=== PATIENT | female | born 1970 | race Two or more races ===

== ENCOUNTER → 2024-12-02 | Outpatient (CLI) | payer BC, SELFPAY ==
--- NOTE | 2024-12-02 16:30 | XR_ITS ---
Examination: Abdomen sonogram, complete Date and time of exam: December 02, 2024 at 1638 hrs. Indications: Jaundice onset noticed beginning 3 weeks ago. Technique: Multiple real-time grayscale transabdominal sonographic images of the abdomen have been obtained. Findings: Gallbladder sludge Gallbladder wall is thickened 0.71 cm Common bile duct enlarged 0.7 cm Pancreatic head 2.5 cm Aorta not enlarged Liver 19.8 cm irregular contour, mild ascites Normal hepatopedal portal venous flow Patent IVC Right kidney 9.9 cm cortex 1.3 cm Left kidney 12.2 cm renal cortex 1.9 cm Spleen 13.4 cm Impression: Gallbladder sludge, gallbladder wall is thickened 0.71 cm Enlarged common bile duct 0.7 cm, consider MRCP follow-up to exclude cholecystitis and stones in the common bile duct Cirrhosis Mild splenomegaly
[2024-12-02 17:32] LABS: Collection Type, Urine Clean Catch
[2024-12-02 17:48] LABS: Basophils # (Auto) 0.1 Thou/mm3 (0.0-0.2); Basophils % (Auto) 0 % (0-2.5); Eosinophils # (Auto) 0.1 Thou/mm3 (0.0-0.5); Eosinophils % (Auto) 0 % (0-10); Hematocrit 33.8 % (36.0-46.0); Hemoglobin 11.7 g/dL (12.0-16.0); Immature Granulocytes % (Auto) 1 % (0-0); Lymphocytes # (Auto) 1.7 Thou/mm3 (1.0-4.8); Lymphocytes % (Auto) 6 % (10-50); Mean Corpuscular HGB Conc 34.6 g/dl (31.0-37.0); Mean Corpuscular Hemoglobin 36.3 pg (25.0-35.0); Mean Corpuscular Volume 105 fL (80-100); Monocytes # (Auto) 1.5 Thou/mm3 (0.0-0.8); Monocytes % (Auto) 5 % (0-12); Neutrophils # (Auto) 25.7 Thou/mm3 (1.8-7.7); Neutrophils % (Auto) 88 % (37-80); Nucleated Red Blood Cell % 0 /100 WBC (0); Platelet Count 200 Thou/mm3 (140-440); RDW Standard Deviation 56.6 fL (36.4-46.3); Red Blood Count 3.22 Miln/mm3 (4.00-5.20); White Blood Count 29.4 Thou/mm3 (3.6-11.0)
[2024-12-02 17:57] LABS: Bacteria,Urine 4+; Bilirubin,Urine 3+ (Negative); Blood,Urine Negative (Negative); Color,Urine Drk-Yellow (Lt Yel-Yel); Culture Indicated,Urine Contaminated; Glucose, Urine Negative (Negative); Ketones,Urine Negative (Negative); Leukocyte Esterase,Urine Positive (Negative); Nitrite,Urine Negative (Negative); Protein,Urine 1+ (Neg - Trace); RBC,Urine 2 /hpf (0-3); Specific Gravity,Urine 1.019 (1.001-1.035); Squamous Epithelial Cell,Urine 12 /hpf (0-5); WBC,Urine 176 /hpf (0-5)
[2024-12-02 17:58] LABS: Clarity,Urine Turbid (Clear/Hazy)
[2024-12-02 18:00] LABS: Ammonia 35 uMol/L (11-32)
[2024-12-02 18:06] LABS: Ferritin 840 ng/mL (7.3-270.7); Iron 74 mcg/dL (50-170); Vitamin B12 > 2000 pg/mL (211-911); Vitamin D 25 Hydroxy Total 30.4 ng/mL (7.3-40.2)
[2024-12-02 20:43] LABS: Alanine Aminotransferase 19 U/L (10-49); Albumin, Serum 2.1 gm/dL (3.5-5.0); Albumin/Globulin Ratio 0.7 (1.2-2.2); Alkaline Phosphatase 294 U/L (46-116); Anion Gap 9 (7-16); Aspartate Amino Transferase 80 U/L (0-34); BUN/Creatinine Ratio 17 Ratio (12-20); Bilirubin,Total 9.6 mg/dL (0.3-1.2); Blood Urea Nitrogen 24 mg/dL (9-23); Calcium 7.5 mg/dL (8.3-10.6); Carbon Dioxide 23.3 mMol/L (20.0-31.0); Chloride 98 mMol/L (98-107); Cholesterol 179 mg/dL (132-200); Creatinine (Component) 1.4 mg/dL (0.6-1.3); Glucose 140 mg/dL (74-106); HDL Cholesterol < 5 mg/dL (40-60); LDL Cholesterol,Calculated 131 mg/dL (0-130); Osmolality,Calculated 266 (275-295); Potassium 3.6 mMol/L (3.4-5.1); Sodium 130 mMol/L (136-145); Thyroid Stimulating Hormone 7.63 uIU/mL (0.55-4.78); Total Protein 5.1 gm/dL (5.7-8.2); Triglycerides 215 mg/dL (30-150); eGFR 44 See Note
== END | disposition home or self-care (01) ==
LOC: CDIM 16:57 → COPL 17:04
PROVIDERS: PCP Physician Assistant; Referring Provider Physician Assistant; Visit Provider Physician Assistant
DX: K74.60 Unspecified cirrhosis of liver (principal); K83.8 Other specified diseases of biliary tract; K82.8 Other specified diseases of gallbladder; R16.1 Splenomegaly, not elsewhere classified; F10.10 Alcohol abuse, uncomplicated; R53.83 Other fatigue; R63.0 Anorexia; R53.1 Weakness; E78.5 Hyperlipidemia, unspecified
CPT/HCPCS: 36415; 76700; 80053; 80061; 81001; 82140; 82306; 82607; 82728; 83540; 84443; 85025

== ENCOUNTER 2024-12-03 17:26 | Emergency (ER) | payer BC, SELFPAY ==
--- NOTE | 2024-12-03 | XR_ITS ---
MRI abdomen, without contrast. MRCP Date and time of exam: November 23, 2024 1127 hrs. Indications: Mid abdominal pain one month Technique: Multiple axial and coronal images of the abdomen have been obtained with the Siemens 1.5T MRI scanner. Images obtained included T1 weighted transverse images, T2-weighted transverse images, T2-weighted transverse images fat-suppressed, T2 weighted haste fat suppressed transverse images, T1 weighted images, in and out of phase images, T2-weighted coronal images, breath hold, T2 weighted haze coronal images as well as T2 weighted coronal thick slab images, MRCP. Findings: Cirrhosis Moderate ascites Gallbladder wall is thickened, which may relate to the patient's ascites Gallbladder sludge Sludge versus 4 mm stone in the common bile duct coronal image 15 Spleen 12 cm No bowel obstruction No hydronephrosis Aorta normal size Impression: Cirrhosis Gallbladder wall is thickened which may relate to the patient's ascites, recommend HIDA scan follow-up Common bile duct 10 mm, sludge versus 4 mm stone in the common bile duct, recommend ERCP follow-up
[2024-12-03 17:45] VITALS: BP 86/55; BP 89/61; PULSE 114; RESP 19; TEMP 36.6; O2SAT 95; BMI 26.4
--- NOTE | 2024-12-03 17:45 | XR_ITS ---
Examination: CT abdomen and pelvis without contrast. Coronal 3-D reconstructions. Sagittal 2-D reconstructions. Date and time of exam:December 03, 2024 1819 hrs. Indications: Jaundice nausea vomiting leukocytosis beginning 2 weeks ago CTDI: vol (mGy): 8.87 DLP: (mGycm): 526 Technique: Axial images of the abdomen have been obtained, 3 mm slice thickness Intravenous contrast material has not been administered. Low dose protocols were performed. One or more of the following dose reduction techniques were used; automated exposure control, adjustment of the mA and/or KV according to patient size, use of iterative reconstruction technique. Findings: Atelectasis versus mild pneumonia right base Small left minimal right pleural fluid Cirrhosis, liver nodular in contour with mild ascites Gallbladder wall appears thickened No pancreatic mass No hydronephrosis No bowel obstruction Enlarged appendix is not depicted Atrophic uterus with multiple uterine fundal masses 7 mm calcified Mild thickening urinary bladder wall Impression: Cirrhosis Mild ascites Recommend gallbladder sonography to exclude cholecystitis Recommend pelvic sonography to assess the enlarged uterus with multiple uterine fundal masses
--- NOTE | 2024-12-03 17:45 | XR_ITS ---
Examination: Abdomen sonogram, Limited Date and time of exam: November 2024 1842 hrs. Indications: Weakness abdominal pain and jaundice bloating beginning 3 weeks ago Technique: Real-time alexis scale transabdominal sonographic images of the upper abdomen obtained. Findings: Gallbladder sludge Gallbladder wall 0.6 cm Common bile duct 0.7 cm Pancreatic head 2.6. Liver 19.3 cm lobular contour, abnormal hepatofugal flow Patent IVC Mild ascites Impression: Cirrhosis, mild ascites Abnormal thickening of the gallbladder wall 0.6 cm and enlarged common bile duct 7 mm, clinical correlation advised Consider HIDA scan or MRCP follow-up
--- NOTE | 2024-12-03 17:46 | EDRME_ITS ---
Rapid Medical Screening Exam [facility] Arrival date/time: 12/03/24 17:26 54-year-old female with no known medical history presents to the emergency room with a chief complaint of abdominal tenderness, hypotension, and jaundice. Patient was sent over by her primary care provider for further workup. Patient states she has a history of heavy alcohol consumption. I have greeted and performed a focused initial assessment of this patient. A comprehensive ED assessment and evaluation of the patient, analysis of all test results, and completion of the medical decision making process will be conducted by additional ED providers. Chief Complaint: Abdominal Pain Vital signs: Vital Signs Temperature 97.8 F 12/03/24 17:45 Pulse Rate 114 H 12/03/24 17:45 Respiratory Rate 19 12/03/24 17:45 Blood Pressure 86/55 L 12/03/24 17:45 Pulse Oximetry (%) 95 12/03/24 17:45 Oxygen Delivery Method Room Air 12/03/24 17:45 Vital signs reviewed by provider: Yes
[2024-12-03 18:05] LABS: Basophils # (Auto) 0.1 Thou/mm3 (0.0-0.2); Basophils % (Auto) 0 % (0-2.5); Eosinophils # (Auto) 0.1 Thou/mm3 (0.0-0.5); Eosinophils % (Auto) 0 % (0-10); Hematocrit 34.4 % (36.0-46.0); Hemoglobin 11.7 g/dL (12.0-16.0); Immature Granulocytes % (Auto) 1 % (0-0); Lymphocytes # (Auto) 1.4 Thou/mm3 (1.0-4.8); Lymphocytes % (Auto) 5 % (10-50); Mean Corpuscular Hemoglobin 36.2 pg (25.0-35.0); Mean Corpuscular Volume 107 fL (80-100); Monocytes # (Auto) 1.2 Thou/mm3 (0.0-0.8); Monocytes % (Auto) 5 % (0-12); Neutrophils # (Auto) 22.7 Thou/mm3 (1.8-7.7); Neutrophils % (Auto) 88 % (37-80); Nucleated Red Blood Cell % 0 /100 WBC (0); Platelet Count 189 Thou/mm3 (140-440); RDW Standard Deviation 57.5 fL (36.4-46.3); Red Blood Count 3.23 Miln/mm3 (4.00-5.20); White Blood Count 25.7 Thou/mm3 (3.6-11.0)
--- NOTE | 2024-12-03 18:14 | PD.EDADULT ---
ED General RME/HPI General Chief complaint: Abdominal Pain Stated complaint: ABD PAIN, JAUNDICE, ELEVATED WBC, SENT BY PCP Arrival date/time: 12/03/24 17:26 RME / HPI RME / HPI narrative: Patient is 54 years old female with past medical history of hypertension and alcohol use disorder presented to the ED due to worsening weakness and jaundice. She reports her condition was worsening over the last 3 weeks when she started becoming yellow and was gradually worsening. She also developed significant generalized weakness. She reports she stopped drinking alcohol 1 month ago, prior to that she was drinking a lot of hard liquor daily for many years. She denies using drugs or smoking tobacco. She denies any fever, chills, chest pain, abdominal pain, nausea or vomiting. She reports over the last several days her stool became pale and urine became dark. Related Data Allergies Allergy/AdvReac Type Severity Reaction Status Date / Time No Known Allergies Allergy Verified 12/03/24 17:29 Review of Systems Review of Systems Systems Reviewed: All systems reviewed, normal except as documented ED Exam Narrative Physical exam: Gen: Well-developed and well-nourished. HEENT: NCAT, PERRLA, EOMI, MMM, icteric conjunctivae. CVS: normal S1 and S2. RRR. No M/R/G. Resp: CTA B/L. No rhonchi, rales, crackles or wheezing. Abd: soft, non-tender, moderately distended. BS+ in all 4 quadrants. MSK: Good ROM in BUE & BLE. No rash. 2+ edema BLE. Neuro: CN II-XII grossly intact. Strength 5/5 in BUE & BLE. Alert and oriented x3. Psych: appropriate mood and affect. Course Course Course Narrative: 1899: US and CT scan were suspicious for gallstone cholecystitis, recommended MRCP or HIDA scan for definitive Dx. Patient is clinically asymptomatic other then abdominal distension which is likely due to cirrhosis. Abdomen is non-tender, Dunn is negative. 1929: sepsis alert. given Zosyn and IVF. 2139: patient will need to have MRCP or HIDA scan prior to admission to rule out gallstone cholecystitis. Patient will stay in ED until morning to perform MRCP or HIDA. 0600: signed off to day shift. Quality Measures Current suspected stage: sepsis Possible source: genitourinary Blood cultures ordered: yes Antibiotic ordered: Yes Pertinent labs: 12/03/24 12/03/24 17:58 21:23 Lactic Acid 3.0 H mMol/L 2.0 mMol/L (0.4-2.0) (0.4-2.0) Procalcitonin 1.33 H ng/ml (0.0-0.49) sepsis Orders Category Date Time Status Fluid restriction QDAY Care 12/03/24 19:40 Active Insert IV STAT Care 12/03/24 17:45 Active MRI Screening NOW Care 12/03/24 19:02 Active Strict Intake and Output Routine Care 12/03/24 19:[address] abdomen pelvis wo con Stat Exams 12/03/24 17:45 Completed MR MRCP Stat Exams 12/03/24 Ordered NM HIDA w pharm Stat Exams 12/03/24 19:42 Ordered US gall bladder Stat Exams 12/03/24 17:45 Completed Ammonia Stat Lab 12/03/24 18:21 Completed Amylase Stat Lab 12/03/24 17:58 Completed Bilirubin,Direct Stat Lab 12/03/24 17:58 Completed Blood Culture (Lab) Stat Lab 12/03/24 18:21 Received CBC Stat Lab 12/03/24 17:58 Completed CMP [Comprehensive Metabolic Panel] Stat Lab 12/03/24 17:58 Completed HCG Qualitative,Urine Stat Lab 12/03/24 19:20 Completed Lactate (Lactic Acid) Stat Lab 12/03/24 17:58 Completed Lactic Acid, 3 HR Stat Lab 12/03/24 21:23 Completed Lipase Stat Lab 12/03/24 17:58 Completed Procalcitonin Stat Lab 12/03/24 17:58 Completed UA [Urinalysis] Stat Lab 12/03/24 19:20 Completed Urine Culture Stat Lab 12/03/24 17:45 Received Albumin Human 25% Ivpb [Albuminar-25 Ivpb] Med 12/03/24 21:06 Discontinued 12.5 gm in 50 ml IV X1 Piper/Tazo 3.375 gm Premix [Zosyn] Med 12/03/24 19:22 Discontinued 3.375 gm in 50 ml IV X1 Sodium Chloride 0.9% 1000 ml [Ns] 1,000 ml Med 12/03/24 17:46 Discontinued IV 999 mls/hr Vital Signs Vital signs: Vital Signs Temperature 97.8 F 12/03/24 17:45 Pulse Rate 114 H 12/03/24 17:45 Respiratory Rate 19 12/03/24 17:45 Blood Pressure 86/55 L 12/03/24 17:45 Pulse Oximetry (%) 95 12/03/24 17:45 Oxygen Delivery Method Room Air 12/03/24 17:45 MDM Patient data External records reviewed:: [facility] previous records Clinical information provided by:: patient and family Social determinants that could affect healthcare access:: alcohol use Patient has the following chronic illnesses:: hypertension and alcohol use disorder How is presenting disease/condition affected by chronic disease/condition?: exacerbated by Evaluation data The following diagnostics were reviewed and interpreted by me:: lab results, radiology exam(s) and EKG tracing(s) Lab and/or radiology exams considered but not ordered:: na Interpretation Summary: Sepsis 2/2 UTI, suspicion for gallstone cholecystitis. Medications Medications considered but not ordered:: na Medication administrations:: Medication Administration History Discontinued Medications Sodium Chloride (Ns) 1,000 mls @ 999 mls/hr IV .Q1H1M ONE Stop: 12/03/24 18:46 Last Infusion: 12/03/24 20:13 Dose: Infused Documented By: Admin: 12/03/24 18:18 Dose: 999 mls/hr Documented By: [facility] Piperacillin/Tazobactam/Dextrose (Zosyn) 3.375 gm in 50 mls @ 100 mls/hr IV X1 ONE Stop: 12/03/24 19:51 Last Infusion: 12/03/24 20:12 Dose: Infused Documented By: Admin: 12/03/24 19:32 Dose: 100 mls/hr Documented By: EF Albumin Human (Albuminar-25 Ivpb) 12.5 gm in 50 mls @ 50 mls/hr IV X1 ONE Stop: 12/03/24 22:05 Last Infusion: 12/03/24 22:43 Dose: Infused Documented By: Admin: 12/03/24 21:43 Dose: 50 mls/hr Documented By: EF as above Consultations Consultation(s) initiated? (list below): No Diagnosis Differential Diagnosis ED Complaint MDM: sepsis, SHANTEL, cholecystitis, Most likely diagnosis given after review of the tests above:: sepsis 2/2 UTI Admission Indicated Admission indicated?: indicated Explain why admission is indicated or not indicated:: Admission is indicated for sepsis 2/2 UTI, however gallstone cholecystitis needs to be ruled out due to lack of ERCP at the hospital. Patient will undergo MRCP or HIDA scan in the morning to determine further management. Admission Request Was there a request for admission?: No Disposition Plan Disposition Plan: other (specify) (passed to day shift.) Medical Decision Making Differential Diagnosis Differential Diagnosis: sepsis, RETIREMENT, cholecystitis, Lab Data 12/03/24 17:58 12/03/24 17:58 Labs: Lab Results 12/03/24 12/03/24 12/03/24 Range/Units 17:58 18:21 19:20 WBC 25.7 H (3.6-11.0) Thou/mm3 RBC 3.23 L (4.00-5.20) Miln/mm3 Hgb 11.7 L (12.0-16.0) g/dL Hct 34.4 L (36.0-46.0) % MCV 107 H (80-100) fL MCH 36.2 H (25.0-35.0) pg MCHC 34.0 (31.0-37.0) g/dl RDW Std Deviation 57.5 H (36.4-46.3) fL Plt Count 189 (140-440) Thou/mm3 Neut % (Auto) 88 H (37-80) % Lymph % (Auto) 5 L (10-50) % [place] % (Auto) 5 (0-12) % Eos % (Auto) 0 (0-10) % Baso % (Auto) 0 (0-2.5) % Neut # (Auto) 22.7 H (1.8-7.7) Thou/mm3 Lymph # (Auto) 1.4 (1.0-4.8) Thou/mm3 [place] # (Auto) 1.2 H (0.0-0.8) Thou/mm3 Eos # (Auto) 0.1 (0.0-0.5) Thou/mm3 Baso # (Auto) 0.1 (0.0-0.2) Thou/mm3 Immature Gran # (Auto) 0.30 H (0.00-0.00) Thou/mm3 Absolute Nucleated RBC 0.00 (0.00-0.00) Thou/mm3 Immature Gran % 1 H (0-0) % Nucleated RBC % 0 (0) /100 WBC Sodium 128 L (136-145) mMol/L Potassium 3.9 (3.4-5.1) mMol/L Chloride 98 (98-107) mMol/L Carbon Dioxide 22.4 (20.0-31.0) mMol/L Anion Gap 8 (7-16) BUN 24 H (9-23) mg/dL Creatinine 1.1 (0.6-1.3) mg/dL Estim Creat Clear Calc 57.5 L (>60) mL/min eGFR 59 L (60 - ) See Note BUN/Creatinine Ratio 22 H (12-20) Ratio Glucose 185 H (74-106) mg/dL Calculated Osmolality 266 L (275-295) Lactic Acid 3.0 H (0.4-2.0) mMol/L Calcium 7.8 L (8.3-10.6) mg/dL Corrected Calcium 9.1 (8.5-10.1) mg/dL Total Bilirubin 9.4 H (0.3-1.2) mg/dL Direct Bilirubin 7.3 H (0.0-0.3) mg/dL AST 95 H (0-34) U/L ALT 20 (10-49) U/L Alkaline Phosphatase 305 H (46-116) U/L Ammonia 31 (11-32) uMol/L Total Protein 5.6 L (5.7-8.2) gm/dL Albumin 2.4 L (3.5-5.0) gm/dL Globulin 3.2 (2.3-3.5) gm/dL Albumin/Globulin Ratio 0.8 L (1.2-2.2) Amylase 33 (30-118) U/L Lipase 18 (12-53) U/L Procalcitonin 1.33 H (0.0-0.49) ng/ml Ur Collection Type Clean Catch Urine Color Drk-Yellow A (Lt Yel-Yel) Urine Clarity Turbid A (Clear/Hazy) Urine pH 5.5 (5.0-7.0) Ur Specific [place] 1.017 (1.001-1.035) Urine Protein Trace (Neg - Trace) Urine Glucose (UA) Negative (Negative) Urine Ketones Negative (Negative) Urine Blood Trace (Negative) Urine Nitrite Negative (Negative) Urine Bilirubin 3+ A (Negative) Urine Urobilinogen (Auto) 3.0 (0.0-1.0) mg/dL Ur Leukocyte Esterase Positive (Negative) Urine RBC 1 (0-3) /hpf Urine WBC 141 H (0-5) /hpf Ur Squamous Epith Cells 14 H (0-5) /hpf Urine Bacteria 3+ A (None) Urine HCG, Qual Negative 12/03/24 Range/Units 21:23 WBC (3.6-11.0) Thou/mm3 RBC (4.00-5.20) Miln/mm3 Hgb (12.0-16.0) g/dL Hct (36.0-46.0) % MCV (80-100) fL MCH (25.0-35.0) pg MCHC (31.0-37.0) g/dl RDW Std Deviation (36.4-46.3) fL Plt Count (140-440) Thou/mm3 Neut % (Auto) (37-80) % Lymph % (Auto) (10-50) % [place] % (Auto) (0-12) % Eos % (Auto) (0-10) % Baso % (Auto) (0-2.5) % Neut # (Auto) (1.8-7.7) Thou/mm3 Lymph # (Auto) (1.0-4.8) Thou/mm3 [place] # (Auto) (0.0-0.8) Thou/mm3 Eos # (Auto) (0.0-0.5) Thou/mm3 Baso # (Auto) (0.0-0.2) Thou/mm3 Immature Gran # (Auto) (0.00-0.00) Thou/mm3 Absolute Nucleated RBC (0.00-0.00) Thou/mm3 Immature Gran % (0-0) % Nucleated RBC % (0) /100 WBC Sodium (136-145) mMol/L Potassium (3.4-5.1) mMol/L Chloride (98-107) mMol/L Carbon Dioxide (20.0-31.0) mMol/L Anion Gap (7-16) BUN (9-23) mg/dL Creatinine (0.6-1.3) mg/dL Estim Creat Clear Calc (>60) mL/min eGFR (60 - ) See Note BUN/Creatinine Ratio (12-20) Ratio Glucose (74-106) mg/dL Calculated Osmolality (275-295) Lactic Acid 2.0 (0.4-2.0) mMol/L Calcium (8.3-10.6) mg/dL Corrected Calcium (8.5-10.1) mg/dL Total Bilirubin (0.3-1.2) mg/dL Direct Bilirubin (0.0-0.3) mg/dL AST (0-34) U/L ALT (10-49) U/L Alkaline Phosphatase (46-116) U/L Ammonia (11-32) uMol/L Total Protein (5.7-8.2) gm/dL Albumin (3.5-5.0) gm/dL Globulin (2.3-3.5) gm/dL Albumin/Globulin Ratio (1.2-2.2) Amylase (30-118) U/L Lipase (12-53) U/L Procalcitonin (0.0-0.49) ng/ml Ur Collection Type Urine Color (Lt Yel-Yel) Urine Clarity (Clear/Hazy) Urine pH (5.0-7.0) Ur Specific [place] (1.001-1.035) Urine Protein (Neg - Trace) Urine Glucose (UA) (Negative) Urine Ketones (Negative) Urine Blood (Negative) Urine Nitrite (Negative) Urine Bilirubin (Negative) Urine Urobilinogen (Auto) (0.0-1.0) mg/dL Ur Leukocyte Esterase (Negative) Urine RBC (0-3) /hpf Urine WBC (0-5) /hpf Ur Squamous Epith Cells (0-5) /hpf Urine Bacteria (None) Urine HCG, Qual Discharge Plan Prescriptions/Referrals Referrals: No Primary/Family,Physician [Primary Care Provider] - In 1 week Problem List Clinical Impression: Sepsis due to urinary tract infection, Gallstones with obstruction of gallbladder Patient/Caregiver Discharge Instructions Print Language: Maldivian Attestation Attestation I, Dr. Castellanos, have reviewed the history, exam, and assessment of the patient. I have evaluated the patient independently and agree with the plan of care documented by resident Torito Bates. All diagnostic studies were reviewed and discussed. I confirm the diagnosis as documented by the resident. I was present during the Medical Decision Making for this patient. The patient's plan of care was created between myself and the Resident and consistent with our discussion of the patient's case.
[2024-12-03 18:17] VITALS: BP 119/76; PULSE 104; RESP 17; O2SAT 100
[2024-12-03] MEDS: SODIUM CHLORIDE 0.9% 1000 ML 1,000 ML 999 ML IV (18:18)
--- NOTE | 2024-12-03 18:24 | PC.NURSE ---
Pt came in to ed due to jaundice, abd. distention, and disorientation for about 3 wks. pt has noticed she has been getting dizzy and falling and last fall was 3 days ago. pt was an everyday drinker of alcohol but quit 1 mo ago. pt noticed to be swollen to lower extremities. pt has hx of anxiety. pt had sepsis alert called. no fever but pt bp was initially low and she is tachycardia on monitor. family at bedside. pt did get blood drawn yesterday at out pt lab.
--- NOTE | 2024-12-03 18:24 | PD.EDADDENDU ---
Emergency Room Addendum Addendum Narrative: 1800: Care assumed from , the previous shift emergency physician. Past medical, surgical, social and family history reviewed. Vitals and home medications reviewed. Results and treatment plan discussed. I will assume the care of the patient at this time and will follow the patient, pending .
--- NOTE | 2024-12-03 18:29 | PC.NURSE ---
pt went to ct scan
[2024-12-03 18:32] LABS: Alanine Aminotransferase 20 U/L (10-49); Albumin, Serum 2.4 gm/dL (3.5-5.0); Albumin/Globulin Ratio 0.8 (1.2-2.2); Alkaline Phosphatase 305 U/L (46-116); Amylase 33 U/L (30-118); Anion Gap 8 (7-16); Aspartate Amino Transferase 95 U/L (0-34); BUN/Creatinine Ratio 22 Ratio (12-20); Bilirubin,Direct 7.3 mg/dL (0.0-0.3); Bilirubin,Total 9.4 mg/dL (0.3-1.2); Blood Urea Nitrogen 24 mg/dL (9-23); Calcium 7.8 mg/dL (8.3-10.6); Calcium (Corrected) 9.1 mg/dL (8.5-10.1); Carbon Dioxide 22.4 mMol/L (20.0-31.0); Chloride 98 mMol/L (98-107); Creatinine (Component) 1.1 mg/dL (0.6-1.3); Estimated Creatinine Clearance 57.5 mL/min (>60); Globulin 3.2 gm/dL (2.3-3.5); Glucose 185 mg/dL (74-106); Lipase 18 U/L (12-53); Osmolality,Calculated 266 (275-295); Potassium 3.9 mMol/L (3.4-5.1); Procalcitonin 1.33 ng/ml (0.0-0.49); Sodium 128 mMol/L (136-145); Total Protein 5.6 gm/dL (5.7-8.2); eGFR 59 See Note
[2024-12-03 18:53] LABS: Ammonia 31 uMol/L (11-32)
[2024-12-03 19:27] LABS: Collection Type, Urine Clean Catch
[2024-12-03] MEDS: PIPER/TAZO 3.375 GM PREMIX 3.375 GM/50 ML BAG IV (19:32)
[2024-12-03 19:34] LABS: HCG Qualitative,Urine Negative
[2024-12-03 19:36] LABS: Bacteria,Urine 3+; Bilirubin,Urine 3+ (Negative); Blood,Urine Trace (Negative); Color,Urine Drk-Yellow (Lt Yel-Yel); Glucose, Urine Negative (Negative); Ketones,Urine Negative (Negative); Leukocyte Esterase,Urine Positive (Negative); Nitrite,Urine Negative (Negative); PH,Urine 5.5 (5.0-7.0); Protein,Urine Trace (Neg - Trace); RBC,Urine 1 /hpf (0-3); Specific Gravity,Urine 1.017 (1.001-1.035); Squamous Epithelial Cell,Urine 14 /hpf (0-5); WBC,Urine 141 /hpf (0-5)
[2024-12-03 19:37] LABS: Clarity,Urine Turbid (Clear/Hazy)
--- NOTE | 2024-12-03 19:42 | XR_ITS ---
Examination: Nuclear medicine hepatobiliary scan, static HIDA scan Date of exam: December 04, 2024 1633 hrs. Indications: Alcohol abuse history with jaundice beginning 3 weeks ago elevated total bilirubin Technique And Findings: 6.3 mCi 99m Hepatolite administered intravenously. Serial imaging obtained immediately through 60 minutes. Homogenous uptake in the liver. Common bile duct small bowel activity noted , no gallbladder activity Impression: Hepatomegaly, no focal liver lesions No gallbladder activity consistent with cystic duct obstruction Isotope activity is noted in the small bowel Impression: No gallbladder activity consistent with cystic duct obstruction
[2024-12-03 19:47] VITALS: BP 116/72; PULSE 99; RESP 20; TEMP 36.7; O2SAT 99
[2024-12-03 21:01] LABS: Reflex Lactate? Y
[2024-12-03] MEDS: ALBUMIN HUMAN 25% IVPB 12.5 GM/50 ML BTL IV (21:43)
[2024-12-03 21:48] VITALS: BP 102/67; PULSE 98; RESP 17; O2SAT 97
[2024-12-04 06:17] VITALS: BP 102/63; PULSE 98; RESP 18; TEMP 36.6; O2SAT 97
--- NOTE | 2024-12-04 06:29 | PD.EDADDENDU ---
Emergency Room Addendum Addendum Narrative: 0600: Care assumed from Dr. Castellanos, the previous shift emergency physician. Past medical, surgical, social and family history reviewed. Vitals and home medications reviewed. I will assume the care of the patient at this time, pending MRCP or HIDA and final disposition. Please refer to the emergency department record for history and examination from initial visit.? Physical exam by me shows patient under no acute distress at this time. 1800: Patient was signed out to Dr. Castellanos. Past medical, surgical, social and family history reviewed. Vitals and home medications reviewed. Results and treatment plan discussed. They will assume the care of the patient at this time and will follow the patient, pending MRCP or HIDA and final disposition.
[2024-12-04 08:32] VITALS: BP 119/71; PULSE 103; RESP 19; O2SAT 96
--- NOTE | 2024-12-04 10:28 | PC.NURSE ---
RN reported to NM on patient, per NM keep patient NPO and update with any changes on patient. NM will attempt scan about 4 pm.
[2024-12-04 10:54] VITALS: BP 109/64; PULSE 106; RESP 19; O2SAT 98
[2024-12-04 14:28] VITALS: BP 120/72; PULSE 108; RESP 27; TEMP 36.6; O2SAT 96
--- NOTE | 2024-12-04 17:15 | PC.NURSE ---
Patient taken to [place] with [facility] for HIDA scan, patient transported via wheelchair, no apparent distress noted.
--- NOTE | 2024-12-04 17:19 | PC.CC ---
Addendum entered by Loretta Kaplan RN 12/04/24 17:34: Spoke to Nancy at [facility] she states they will review patient Original Note: 1720- Left a for [facility], chart faxed [phone]-Made aware by Dr. Elena that patient needs to be transferrred for an ERCP for enlarged CBD and elevated liver enzymes
[2024-12-04] MEDS: PIPER/TAZO 3.375 GM PREMIX 3.375 GM/50 ML BAG IV (18:28)
[2024-12-04 18:29] VITALS: BP 113/63; PULSE 106; RESP 18; TEMP 37.1; O2SAT 95
--- NOTE | 2024-12-04 18:49 | PD.EDADDENDU ---
Emergency Room Addendum Addendum Narrative: 1800: Care assumed from Dr. Elena, the previous shift emergency physician. Past medical, surgical, social and family history reviewed. Vitals and home medications reviewed. I will assume the care of the patient at this time, pending MRCP or HIDA and final disposition. Please refer to the emergency department record for history and examination from initial visit. Physical exam by me shows patient under no acute distress at this time. 1900 Case d/w Dr. Agustin [phone], at [facility], who accepts the patient for transfer. MD Attestation MD Attestation Scribe Attestation: I, Mikaela Hodges, am scribing for and in the presence of Dr. Castellanos. Provider Notation: Although this document has been carefully reviewed, there may still be some phonetic and other typographical errors. These errors are purely grammatical due to imperfections in the software program and should not be construed in any way to compromise the substance of the patient's medical care during this visit.
--- NOTE | 2024-12-04 19:55 | PC.NURSE ---
Called and gave report to FRANK Haynes at [facility].
[2024-12-04 20:08] VITALS: BP 112/66; PULSE 110; RESP 18; TEMP 36.9; O2SAT 96
== END 2024-12-04 20:31 | disposition short-term general hospital (02) ==
PROVIDERS: Nurse Practitioner Family; Student in an Organized Health Care Education/Training Program; Emergency Provider Emergency Medicine
DX: A41.9 Sepsis, unspecified organism (principal); N39.0 Urinary tract infection, site not specified; K80.21 Calculus of gallbladder without cholecystitis with obstruction; I10 Essential (primary) hypertension; R17 Unspecified jaundice
CPT/HCPCS: 36415; 74176; 76705; 78227; 80053; 81001; 81025; 82140; 82150; 82248; 83605; 83690; 84145; 85025; 87040; 87077; 87086; 87186; 96365; 96367; 99285; A9537; J2543; J7030; P9047; S8037; 74181

== ENCOUNTER → 2025-01-10 | Outpatient (CLI) | payer BC, SELFPAY ==
[2025-01-10 13:09] LABS: Basophils # (Auto) 0.1 Thou/mm3 (0.0-0.2); Basophils % (Auto) 1 % (0-2.5); Eosinophils # (Auto) 0.2 Thou/mm3 (0.0-0.5); Eosinophils % (Auto) 2 % (0-10); Hematocrit 21.7 % (36.0-46.0); Immature Granulocytes % (Auto) 0 % (0-0); Immature Granulocytes Auto 0.02 Thou/mm3 (0.00-0.00); Lymphocytes # (Auto) 2.8 Thou/mm3 (1.0-4.8); Lymphocytes % (Auto) 32 % (10-50); Mean Corpuscular HGB Conc 34.1 g/dl (31.0-37.0); Mean Corpuscular Hemoglobin 33.6 pg (25.0-35.0); Mean Corpuscular Volume 99 fL (80-100); Monocytes # (Auto) 0.7 Thou/mm3 (0.0-0.8); Monocytes % (Auto) 8 % (0-12); Neutrophils % (Auto) 57 % (37-80); Nucleated Red Blood Cell % 0 /100 WBC (0); Platelet Count 186 Thou/mm3 (140-440); RDW Standard Deviation 60.3 fL (36.4-46.3); White Blood Count 8.7 Thou/mm3 (3.6-11.0)
[2025-01-10 13:12] LABS: Hemoglobin 7.4 g/dL (12.0-16.0)
[2025-01-10 13:15] LABS: Ammonia 34 uMol/L (11-32)
[2025-01-10 13:32] LABS: Alanine Aminotransferase 9 U/L (10-49); Albumin, Serum 3.2 gm/dL (3.5-5.0); Albumin/Globulin Ratio 1.1 (1.2-2.2); Alkaline Phosphatase 153 U/L (46-116); Anion Gap 10 (7-16); Aspartate Amino Transferase 42 U/L (0-34); BUN/Creatinine Ratio 7 Ratio (12-20); Bilirubin,Total 7.4 mg/dL (0.3-1.2); Blood Urea Nitrogen 7 mg/dL (9-23); Calcium (Corrected) 8.6 mg/dL (8.5-10.1); Carbon Dioxide 20.9 mMol/L (20.0-31.0); Chloride 111 mMol/L (98-107); Glucose 131 mg/dL (74-106); Osmolality,Calculated 283 (275-295); Potassium 3.1 mMol/L (3.4-5.1); Sodium 142 mMol/L (136-145); Total Protein 6.2 gm/dL (5.7-8.2); eGFR > 60 See Note
== END | disposition home or self-care (01) ==
PROVIDERS: PCP Family Medicine; Referring Provider Physician Assistant; Visit Provider Physician Assistant
DX: K70.31 Alcoholic cirrhosis of liver with ascites (principal); F10.20 Alcohol dependence, uncomplicated
CPT/HCPCS: 36415; 80053; 82140; 85025

== ENCOUNTER → 2025-01-13 | Outpatient (CLI) | payer BC, SELFPAY ==
[2025-01-13 10:45] LABS: Alcohol, Blood Medical < 3.0 mg/dL (0-10.0)
== END | disposition home or self-care (01) ==
LOC: COPL 09:34
PROVIDERS: PCP Family Medicine; Referring Provider Physician Assistant; Visit Provider Physician Assistant
DX: F10.20 Alcohol dependence, uncomplicated (principal); K70.31 Alcoholic cirrhosis of liver with ascites
CPT/HCPCS: 36415; 80320; G0480

== ENCOUNTER → 2025-01-22 | Outpatient (CLI) | payer BC, SELFPAY ==
--- NOTE | 2025-01-22 15:21 | XR_ITS ---
Examination: Abdomen sonogram, complete Date and time of exam: January 22, 2025 1529 hours INDICATIONS: Abdominal distention this week, diagnosis cirrhosis. Technique: Multiple real-time grayscale transabdominal sonographic images of the abdomen have been obtained. Findings: Negative for gallstones Gallbladder wall is thickened but the patient has ascites No common bile duct stones Normal pancreas. Aorta proximally is visualized not enlarged Liver 17.4 cm lobular contour Normal hepatopedal portal venous flow Patent IVC Right kidney 9.1 cm cortex 1.1 cm Left kidney 12.9 cm cortex 1.8 cm Spleen 12.0 cm IMPRESSION: Negative for cholelithiasis Cirrhosis Moderate ascites Small right kidney
== END | disposition home or self-care (01) ==
PROVIDERS: PCP Family Medicine; Referring Provider Physician Assistant; Visit Provider Physician Assistant
DX: K70.31 Alcoholic cirrhosis of liver with ascites (principal); N27.0 Small kidney, unilateral
CPT/HCPCS: 76700

== ENCOUNTER → 2025-01-22 | Outpatient (CLI) | payer BC, SELFPAY ==
[2025-01-22] VITALS (9 sets, daily range): BP systolic 113–129; BP diastolic 65–79; PULSE 81–100; RESP 16; TEMP 36.8–37.1; O2SAT 98–100; BMI 30.6
== END | disposition home or self-care (01) ==
LOC: SFLEX 07:32
PROVIDERS: PCP Family Medicine; Referring Provider Family Medicine; Visit Provider Family Medicine
PROC: (CPT 36430; principal; 2025-01-22 06:00)
DX: D64.9 Anemia, unspecified (principal)
CPT/HCPCS: 36415; 36430; 86850; 86900; 86901; 86923; P9016

== ENCOUNTER → 2025-01-24 | Outpatient (CLI) | payer BC, SELFPAY ==
[2025-01-24 16:50] LABS: Basophils % (Auto) 0 % (0-2.5); Eosinophils # (Auto) 0.1 Thou/mm3 (0.0-0.5); Eosinophils % (Auto) 1 % (0-10); Hematocrit 28.8 % (36.0-46.0); Hemoglobin 9.9 g/dL (12.0-16.0); INR 1.7 (0.9-1.3); Immature Granulocytes % (Auto) 0 % (0-0); Immature Granulocytes Auto 0.03 Thou/mm3 (0.00-0.00); Lymphocytes # (Auto) 2.5 Thou/mm3 (1.0-4.8); Lymphocytes % (Auto) 31 % (10-50); Mean Corpuscular HGB Conc 34.4 g/dl (31.0-37.0); Mean Corpuscular Volume 90 fL (80-100); Monocytes # (Auto) 0.8 Thou/mm3 (0.0-0.8); Monocytes % (Auto) 9 % (0-12); Neutrophils # (Auto) 4.6 Thou/mm3 (1.8-7.7); Neutrophils % (Auto) 58 % (37-80); Nucleated Red Blood Cell % 0 /100 WBC (0); Partial Thromboplastin Time 36.3 Seconds (22.0-36.0); Platelet Count 135 Thou/mm3 (140-440); Prothrombin Time 18.2 Seconds (9.0-12.2); RDW Standard Deviation 61.6 fL (36.4-46.3); Red Blood Count 3.19 Miln/mm3 (4.00-5.20)
== END | disposition home or self-care (01) ==
LOC: COPL 15:30
PROVIDERS: PCP Family Medicine; Referring Provider Physician Assistant; Visit Provider Physician Assistant
DX: K70.31 Alcoholic cirrhosis of liver with ascites (principal)
CPT/HCPCS: 36415; 85025; 85610; 85730

== ENCOUNTER → 2025-01-27 | Outpatient (CLI) | payer BC, SELFPAY ==
--- NOTE | 2025-01-27 11:00 | XR_ITS ---
Examination: Ultrasound-guided paracentesis Abdominal sonogram limited Date and time of exam: January 27, 2025 1051 hours INDICATIONS: Cirrhosis, increasing ascites and abdominal distention this week Informed consent provided. A timeout was completed verifying correct patient, procedure, site, positioning, and special adequate movement if applicable. Technique: Multiple sonographic images of the abdomen have been obtained. Appropriate area for paracentesis was marked. Local anesthesia is obtained with 1% lidocaine. Yueh catheter is successfully introduced. Findings: Abdominal sonographic images demonstrate sufficient ascitic fluid for paracentesis. After placing the Yueh catheter, 8200 cc of fluid were successfully removed. During and after completion of the procedure the patient appear in satisfactory and stable condition with no complications observed. Estimated blood loss 0 cc Impression: Abdominal ascites Successful ultrasound-guided paracentesis as described above
[2025-01-27] MEDS: ALBUMIN HUMAN 25% IVPB 25 GM/100 ML BTL IV (12:18)
== END | disposition home or self-care (01) ==
PROVIDERS: PCP Physician Assistant; Referring Provider Physician Assistant; Visit Provider Physician Assistant
DX: K70.31 Alcoholic cirrhosis of liver with ascites (principal)
CPT/HCPCS: 49083; C1729; P9047

== ENCOUNTER → 2025-01-30 | Outpatient (CLI) | payer BC, SELFPAY ==
[2025-01-30 14:26] LABS: Basophils % (Auto) 1 % (0-2.5); Eosinophils # (Auto) 0.1 Thou/mm3 (0.0-0.5); Eosinophils % (Auto) 1 % (0-10); Hematocrit 29.6 % (36.0-46.0); Hemoglobin 10.2 g/dL (12.0-16.0); Immature Granulocytes % (Auto) 0 % (0-0); Immature Granulocytes Auto 0.02 Thou/mm3 (0.00-0.00); Lymphocytes # (Auto) 2.4 Thou/mm3 (1.0-4.8); Lymphocytes % (Auto) 37 % (10-50); Mean Corpuscular HGB Conc 34.5 g/dl (31.0-37.0); Mean Corpuscular Hemoglobin 31.6 pg (25.0-35.0); Mean Corpuscular Volume 92 fL (80-100); Monocytes # (Auto) 0.5 Thou/mm3 (0.0-0.8); Monocytes % (Auto) 8 % (0-12); Neutrophils # (Auto) 3.5 Thou/mm3 (1.8-7.7); Neutrophils % (Auto) 53 % (37-80); Nucleated Red Blood Cell % 0 /100 WBC (0); Platelet Count 131 Thou/mm3 (140-440); RDW Standard Deviation 62.9 fL (36.4-46.3); Red Blood Count 3.23 Miln/mm3 (4.00-5.20); White Blood Count 6.6 Thou/mm3 (3.6-11.0)
[2025-01-30 14:51] LABS: Alanine Aminotransferase 9 U/L (10-49); Albumin, Serum 3.1 gm/dL (3.5-5.0); Alkaline Phosphatase 103 U/L (46-116); Anion Gap 9 (7-16); Aspartate Amino Transferase 43 U/L (0-34); BUN/Creatinine Ratio 14 Ratio (12-20); Bilirubin,Total 5.1 mg/dL (0.3-1.2); Blood Urea Nitrogen 11 mg/dL (9-23); Calcium 7.9 mg/dL (8.3-10.6); Calcium (Corrected) 8.6 mg/dL (8.5-10.1); Carbon Dioxide 23.8 mMol/L (20.0-31.0); Chloride 105 mMol/L (98-107); Creatinine (Component) 0.8 mg/dL (0.6-1.3); Globulin 3.1 gm/dL (2.3-3.5); Glucose 137 mg/dL (74-106); Osmolality,Calculated 277 (275-295); Potassium 3.2 mMol/L (3.4-5.1); Sodium 138 mMol/L (136-145); Total Protein 6.2 gm/dL (5.7-8.2); eGFR > 60 See Note
== END | disposition home or self-care (01) ==
LOC: COPL 13:32
PROVIDERS: PCP Physician Assistant; Referring Provider Specialist; Visit Provider Specialist
DX: R11.0 Nausea (principal); R10.32 Left lower quadrant pain; R14.0 Abdominal distension (gaseous); R60.9 Edema, unspecified
CPT/HCPCS: 36415; 80053; 85025

== ENCOUNTER → 2025-02-05 | Outpatient (CLI) | payer BC, SELFPAY ==
[2025-02-05 11:59] LABS: Basophils # (Auto) 0.1 Thou/mm3 (0.0-0.2); Basophils % (Auto) 1 % (0-2.5); Eosinophils # (Auto) 0.1 Thou/mm3 (0.0-0.5); Eosinophils % (Auto) 1 % (0-10); Hematocrit 30.3 % (36.0-46.0); Hemoglobin 10.5 g/dL (12.0-16.0); Immature Granulocytes % (Auto) 0 % (0-0); Immature Granulocytes Auto 0.03 Thou/mm3 (0.00-0.00); Lymphocytes # (Auto) 2.2 Thou/mm3 (1.0-4.8); Lymphocytes % (Auto) 31 % (10-50); Mean Corpuscular HGB Conc 34.7 g/dl (31.0-37.0); Mean Corpuscular Hemoglobin 31.8 pg (25.0-35.0); Mean Corpuscular Volume 92 fL (80-100); Monocytes # (Auto) 0.5 Thou/mm3 (0.0-0.8); Monocytes % (Auto) 8 % (0-12); Neutrophils # (Auto) 4.1 Thou/mm3 (1.8-7.7); Neutrophils % (Auto) 59 % (37-80); Nucleated Red Blood Cell % 0 /100 WBC (0); Platelet Count 175 Thou/mm3 (140-440); RDW Standard Deviation 66.4 fL (36.4-46.3); White Blood Count 6.9 Thou/mm3 (3.6-11.0)
[2025-02-05 12:11] LABS: Alanine Aminotransferase 12 U/L (10-49); Albumin/Globulin Ratio 0.9 (1.2-2.2); Alkaline Phosphatase 104 U/L (46-116); Anion Gap 9 (7-16); Aspartate Amino Transferase 40 U/L (0-34); BUN/Creatinine Ratio 11 Ratio (12-20); Bilirubin,Total 4.3 mg/dL (0.3-1.2); Blood Urea Nitrogen 10 mg/dL (9-23); Calcium 7.8 mg/dL (8.3-10.6); Calcium (Corrected) 8.6 mg/dL (8.5-10.1); Carbon Dioxide 26.6 mMol/L (20.0-31.0); Chloride 101 mMol/L (98-107); Creatinine (Component) 0.9 mg/dL (0.6-1.3); Globulin 3.3 gm/dL (2.3-3.5); Glucose 172 mg/dL (74-106); Osmolality,Calculated 276 (275-295); Potassium 3.5 mMol/L (3.4-5.1); Sodium 137 mMol/L (136-145); Total Protein 6.3 gm/dL (5.7-8.2); eGFR > 60 See Note
[2025-02-05 12:16] LABS: Ferritin 798 ng/mL (7.3-270.7); Iron 79 mcg/dL (50-170)
== END | disposition home or self-care (01) ==
LOC: COPL 11:02
PROVIDERS: PCP Physician Assistant; Referring Provider Physician Assistant; Visit Provider Physician Assistant
DX: D64.9 Anemia, unspecified (principal); E87.6 Hypokalemia
CPT/HCPCS: 36415; 80053; 82728; 83540; 85025

== ENCOUNTER → 2025-02-13 | Outpatient (CLI) | payer BC, SELFPAY ==
[2025-02-13 16:32] LABS: Basophils # (Auto) 0.1 Thou/mm3 (0.0-0.2); Basophils % (Auto) 1 % (0-2.5); Eosinophils # (Auto) 0.1 Thou/mm3 (0.0-0.5); Eosinophils % (Auto) 1 % (0-10); Hemoglobin 10.9 g/dL (12.0-16.0); Immature Granulocytes % (Auto) 0 % (0-0); Immature Granulocytes Auto 0.03 Thou/mm3 (0.00-0.00); Lymphocytes # (Auto) 2.4 Thou/mm3 (1.0-4.8); Lymphocytes % (Auto) 31 % (10-50); Mean Corpuscular HGB Conc 35.2 g/dl (31.0-37.0); Mean Corpuscular Hemoglobin 31.6 pg (25.0-35.0); Mean Corpuscular Volume 90 fL (80-100); Monocytes # (Auto) 0.7 Thou/mm3 (0.0-0.8); Monocytes % (Auto) 9 % (0-12); Neutrophils # (Auto) 4.5 Thou/mm3 (1.8-7.7); Neutrophils % (Auto) 58 % (37-80); Nucleated Red Blood Cell % 0 /100 WBC (0); Platelet Count 216 Thou/mm3 (140-440); Red Blood Count 3.45 Miln/mm3 (4.00-5.20); White Blood Count 7.7 Thou/mm3 (3.6-11.0)
[2025-02-13 16:40] LABS: INR 1.3 (0.9-1.3); Partial Thromboplastin Time 29.9 Seconds (22.0-36.0); Prothrombin Time 13.6 Seconds (9.0-12.2)
[2025-02-13 16:52] LABS: Alanine Aminotransferase 9 U/L (10-49); Albumin, Serum 3.1 gm/dL (3.5-5.0); Albumin/Globulin Ratio 0.9 (1.2-2.2); Alkaline Phosphatase 85 U/L (46-116); Anion Gap 11 (7-16); Aspartate Amino Transferase 39 U/L (0-34); BUN/Creatinine Ratio 13 Ratio (12-20); Bilirubin,Total 3.4 mg/dL (0.3-1.2); Blood Urea Nitrogen 12 mg/dL (9-23); Calcium 8.3 mg/dL (8.3-10.6); Carbon Dioxide 22.6 mMol/L (20.0-31.0); Chloride 102 mMol/L (98-107); Creatinine (Component) 0.9 mg/dL (0.6-1.3); Globulin 3.5 gm/dL (2.3-3.5); Glucose 147 mg/dL (74-106); Osmolality,Calculated 274 (275-295); Potassium 3.6 mMol/L (3.4-5.1); Sodium 136 mMol/L (136-145); Total Protein 6.6 gm/dL (5.7-8.2); eGFR > 60 See Note
== END | disposition home or self-care (01) ==
PROVIDERS: PCP Physician Assistant; Referring Provider Specialist; Visit Provider Specialist
DX: R18.8 Other ascites (principal); R11.0 Nausea; R10.32 Left lower quadrant pain; R14.0 Abdominal distension (gaseous)
CPT/HCPCS: 36415; 80053; 85025; 85610; 85730

== ENCOUNTER → 2025-02-18 | Outpatient (CLI) | payer BC, SELFPAY ==
--- NOTE | 2025-02-18 12:00 | XR_ITS ---
Examination: Abdomen sonogram, Limited Date and time of exam: February 18, 2025 1226 hours INDICATIONS: Cirrhosis increasing abdominal distention this week Technique: Real-time alexis scale transabdominal sonographic images of the upper abdomen obtained. Findings: Minimal ascitic fluid IMPRESSION: Minimal ascitic fluid
== END | disposition home or self-care (01) ==
PROVIDERS: PCP Physician Assistant; Referring Provider Specialist; Visit Provider Specialist
DX: K70.31 Alcoholic cirrhosis of liver with ascites (principal); Z53.8 Procedure and treatment not carried out for other reasons
CPT/HCPCS: 76705

== ENCOUNTER → 2025-02-27 | Outpatient (CLI) | payer BC, SELFPAY ==
[2025-02-27 14:56] LABS: INR 1.2 (0.9-1.3); Partial Thromboplastin Time 29.4 Seconds (22.0-36.0)
== END | disposition home or self-care (01) ==
LOC: COPL 13:57
PROVIDERS: PCP Physician Assistant; Referring Provider Specialist; Visit Provider Specialist
DX: Z01.89 Encounter for other specified special examinations (principal)
CPT/HCPCS: 36415; 85610; 85730

== ENCOUNTER → 2025-03-31 | Outpatient (CLI) | payer BC, SELFPAY ==
[2025-03-31 09:04] LABS: Collection Type, Urine Clean Catch
[2025-03-31 09:29] LABS: Basophils # (Auto) 0.1 Thou/mm3 (0.0-0.2); Basophils % (Auto) 1 % (0-2.5); Eosinophils # (Auto) 0.1 Thou/mm3 (0.0-0.5); Eosinophils % (Auto) 1 % (0-10); Hematocrit 37.9 % (36.0-46.0); Hemoglobin 13.2 g/dL (12.0-16.0); Immature Granulocytes Auto 0.02 Thou/mm3 (0.00-0.00); Lymphocytes # (Auto) 3.4 Thou/mm3 (1.0-4.8); Lymphocytes % (Auto) 44 % (10-50); Mean Corpuscular HGB Conc 34.8 g/dl (31.0-37.0); Mean Corpuscular Hemoglobin 32.1 pg (25.0-35.0); Mean Corpuscular Volume 92 fL (80-100); Monocytes # (Auto) 0.5 Thou/mm3 (0.0-0.8); Monocytes % (Auto) 6 % (0-12); Neutrophils # (Auto) 3.7 Thou/mm3 (1.8-7.7); Neutrophils % (Auto) 48 % (37-80); Nucleated Red Blood Cell # 0.00 Thou/mm3 (0.00-0.00); Nucleated Red Blood Cell % 0 /100 WBC (0); Platelet Count 170 Thou/mm3 (140-440); RDW Standard Deviation 56.0 fL (36.4-46.3); Red Blood Count 4.11 Miln/mm3 (4.00-5.20); White Blood Count 7.7 Thou/mm3 (3.6-11.0)
[2025-03-31 09:42] LABS: Bilirubin,Urine Negative (Negative); Blood,Urine Negative (Negative); Clarity,Urine Clear (Clear/Hazy); Color,Urine Yellow (Lt Yel-Yel); Glucose, Urine Negative (Negative); Ketones,Urine Negative (Negative); Leukocyte Esterase,Urine Positive (Negative); Nitrite,Urine Negative (Negative); PH,Urine 6.0 (5.0-7.0); Protein,Urine Negative (Neg - Trace); RBC,Urine 4 /hpf (0-3); Specific Gravity,Urine 1.014 (1.001-1.035); Squamous Epithelial Cell,Urine 1 /hpf (0-5); Urobilinogen,Urine Negative mg/dL (0.0-1.0); WBC,Urine 17 /hpf (0-5)
[2025-03-31 09:43] LABS: INR 1.2 (0.9-1.3); Partial Thromboplastin Time 30.3 Seconds (22.0-36.0); Prothrombin Time 12.6 Seconds (9.0-12.2)
[2025-03-31 09:57] LABS: Alanine Aminotransferase 26 U/L (10-49); Albumin, Serum 3.7 gm/dL (3.5-5.0); Albumin/Globulin Ratio 1.0 (1.2-2.2); Alkaline Phosphatase 140 U/L (46-116); Anion Gap 12 (7-16); Aspartate Amino Transferase 56 U/L (0-34); BUN/Creatinine Ratio 21 Ratio (12-20); Bilirubin,Total 2.6 mg/dL (0.3-1.2); Blood Urea Nitrogen 23 mg/dL (9-23); Calcium 9.9 mg/dL (8.3-10.6); Calcium (Corrected) 10.1 mg/dL (8.5-10.1); Carbon Dioxide 24.9 mMol/L (20.0-31.0); Cardiac Risk Estimate 6.5 RATIO (3.7-5.6); Chloride 101 mMol/L (98-107); Cholesterol 175 mg/dL (132-200); Creatinine (Component) 1.1 mg/dL (0.6-1.3); Globulin 3.8 gm/dL (2.3-3.5); Glucose 110 mg/dL (74-106); HDL Cholesterol 27 mg/dL (40-60); LDL Cholesterol,Calculated 127 mg/dL (0-130); Osmolality,Calculated 280 (275-295); Potassium 3.4 mMol/L (3.4-5.1); Sodium 138 mMol/L (136-145); Thyroid Stimulating Hormone 4.55 uIU/mL (0.55-4.78); Total Protein 7.5 gm/dL (5.7-8.2); Triglycerides 107 mg/dL (30-150); eGFR 59 See Note
[2025-03-31 10:01] LABS: Vitamin B12 789 pg/mL (211-911); Vitamin D 25 Hydroxy Total 37.7 ng/mL (7.3-40.2)
[2025-03-31 10:05] LABS: Ferritin 274 ng/mL (7.3-270.7); Iron 145 mcg/dL (50-170)
[2025-03-31 10:07] LABS: Culture Indicated,Urine Yes
== END | disposition home or self-care (01) ==
PROVIDERS: PCP Physician Assistant; Referring Provider Specialist; Visit Provider Specialist
DX: Z00.00 Encounter for general adult medical examination without abnormal findings (principal); D64.9 Anemia, unspecified; E55.9 Vitamin D deficiency, unspecified; E78.5 Hyperlipidemia, unspecified
CPT/HCPCS: 36415; 80053; 80061; 81001; 82306; 82607; 82728; 83540; 84443; 85025; 85610; 85730; 87086

== ENCOUNTER → 2025-04-04 | Outpatient (CLI) | payer BC, SELFPAY ==
[2025-04-04 15:05] LABS: Collection Type, Urine Clean Catch
[2025-04-04 16:39] LABS: Bilirubin,Urine Negative (Negative); Blood,Urine Negative (Negative); Clarity,Urine Clear (Clear/Hazy); Color,Urine Yellow (Lt Yel-Yel); Glucose, Urine Negative (Negative); Hyaline Casts,Urine < 1 /hpf (0-1); Ketones,Urine Negative (Negative); Leukocyte Esterase,Urine Positive (Negative); Nitrite,Urine Negative (Negative); PH,Urine 5.5 (5.0-7.0); Protein,Urine Negative (Neg - Trace); RBC,Urine 1 /hpf (0-3); Specific Gravity,Urine 1.014 (1.001-1.035); Squamous Epithelial Cell,Urine 1 /hpf (0-5); Urobilinogen,Urine Negative mg/dL (0.0-1.0); WBC,Urine 6 /hpf (0-5)
== END | disposition home or self-care (01) ==
LOC: SLDO 14:43
PROVIDERS: PCP Physician Assistant; Referring Provider Physician Assistant; Visit Provider Physician Assistant
DX: N39.0 Urinary tract infection, site not specified (principal)
CPT/HCPCS: 81001; 87086

== ENCOUNTER → 2025-04-16 | Outpatient (CLI) | payer BC, SELFPAY ==
--- NOTE | 2025-04-16 14:30 | XR_ITS ---
Examination: Screening digital mammography, bilateral Computer aided detection 3-D breast Tomosynthesis, bilateral Date and time of exam: April 16, 2025 1423 hours Compared to mammograms dating to July 19, 2011 Indication: Screening Technique: Nonmagnified MLO, CC views of the breasts to been obtained, reconstructed from 3-D Tomosynthesis images. R2 computer aided detection program utilized for evaluation of suspicious masses and/or abnormal calcifications. 3-D Tomosynthesis images obtained. Findings: The breasts are heterogeneously dense, which may obscure small masses No interval suspicious masses Benign calcifications Impression: BI-RADS category II: Benign Findings. Recommend 1 year follow-up mammogram.
== END | disposition home or self-care (01) ==
LOC: CDIM 14:14
PROVIDERS: Referring Provider Physician Assistant; Visit Provider Physician Assistant
DX: Z12.31 Encounter for screening mammogram for malignant neoplasm of breast (principal); R92.323 Mammographic fibroglandular density, bilateral breasts; R92.1 Mammographic calcification found on diagnostic imaging of breast
CPT/HCPCS: 77063; 77067

== ENCOUNTER 2025-05-05 09:10 | Day surgery (SDC) | payer BC, SELFPAY ==
[2025-05-05] VITALS (10 sets, daily range): BP systolic 110–132; BP diastolic 62–78; PULSE 66–77; RESP 16–20; TEMP 36.4–36.6; O2SAT 97–100; BMI 23.0
[2025-05-05] MEDS: SODIUM CHLORIDE 0.9% 500 ML 500 ML 20 ML IV (11:33)
[2025-05-05] MEDS: MIDAZOLAM INJ 1 MG/ML VIAL 2 ML (ASD USE ONLY) 2 MG IVP (11:39)
[2025-05-05] MEDS: fentaNYL CIT INJ 50 mCg/ML AMP 2ML (ASD USE ONLY) IVP (11:39)
--- NOTE | 2025-05-05 12:37 | SUR.PHASEII ---
Patient stable and up out of bed dressed waiting in wheel chair at this time, patient's is also a patient and they will be leaving together. As of now patient waiting for ride. Tolerating oral fluids well
== END 2025-05-05 13:05 | disposition home or self-care (01) ==
PROVIDERS: PCP Physician Assistant; Referring Provider Specialist; Visit Provider Specialist
PROC: 0DBE8ZX Excision of Large Intestine, Via Natural or Artificial Opening Endoscopic, Diagnostic (ICD-10-PCS; CPT 45380; principal; 2025-05-05 13:30)
DX: Z12.11 Encounter for screening for malignant neoplasm of colon (principal); D12.2 Benign neoplasm of ascending colon; K64.9 Unspecified hemorrhoids; K62.1 Rectal polyp
CPT/HCPCS: 45380; 81025; J1200; J2250; J3010; J7999

== ENCOUNTER 2025-05-08 18:15 | Emergency (ER) | payer BC, SELFPAY ==
[2025-05-08 18:56] VITALS: BP 127/68; PULSE 63; RESP 18; TEMP 36.8; O2SAT 98; BMI 21.9
--- NOTE | 2025-05-08 19:48 | PD.EDWOUND ---
ED Wound/Laceration-RME/HPI General Chief Complaint: Wound/Laceration Stated Complaint: Laceration to left thumb while cutting meat Time Seen by Provider: 05/08/25 19:03 Arrival date/time: 05/08/25 18:15 RME / HPI RME / HPI narrative: 54-year-old female patient came in for evaluation regarding thumb laceration, patient sustained thumb laceration, dorsal aspect, at the metacarpophalangeal area area. Sustained few minutes prior to ER visit while cutting meat. Patient denies any other complaints. Related Data Home Medications ?Medication ?Instructions ?Recorded ?Confirmed lactulose 10 gram/15 mL oral 30 g PO QID 01/22/25 05/05/25 solution (Constulose) midodrine 10 mg tablet 10 mg PO TID 01/22/25 05/05/25 rifaximin 200 mg tablet (Xifaxan) 200 mg PO TID 01/22/25 05/05/25 furosemide 40 mg tablet 40 mg PO QDAY 05/05/25 05/05/25 hydroxyzine HCl 10 mg tablet 10 mg PO BID 05/05/25 05/05/25 rifaximin 550 mg tablet (Xifaxan) 550 mg PO BID 05/05/25 05/05/25 spironolactone 25 mg tablet 25 mg PO BID 05/05/25 05/05/25 ursodiol 300 mg capsule 300 mg PO BID 05/05/25 05/05/25 Allergies Allergy/AdvReac Type Severity Reaction Status Date / Time adhesive tape Allergy Mild Rash Verified 05/08/25 18:19 Latex, Natural Rubber Allergy Mild Hives Verified 05/08/25 18:19 Review of Systems Review of Systems Narrative Review of Systems: Review of system reviewed and within normal limits except mentioned in HPI ED Exam Narrative Physical exam: VITAL SIGNS: Reviewed. GENERAL APPEARANCE: Alert and interactive, follows commands, no acute distress, HEAD AND FACE: Non-traumatic. ENT: PERRL, pink conjunctivitis, eyelid no trauma, Mucous membrane moist. MUSCULOSKELETAL: low back nontender, full range of motion. EXTREMITIES: + 1.5 cm laceration to the dorsal aspect of the thumb at the metacarpophalangeal area joint, with some limitation on full extension of the thumb at the interphalangeal joint. Patient also sustained 1 cm laceration to the left index area SKIN: Color pink, dry, no rash, no lacerations, no abrasions, no contusions. LYMPHATICS: Deferred. Course Quality Measures none Orders Category Date Time Status TET,DIP/PERT AC (Adult)-Tdap [Boostrix Adult (Tdap) Med 05/08/25 19:48 Once Vacc] 0.5 ml IMI .ONCE ONE Vital Signs Vital signs: Vital Signs Temperature 98.3 F 05/08/25 18:56 Pulse Rate 63 05/08/25 18:56 Respiratory Rate 18 05/08/25 18:56 Blood Pressure 127/68 05/08/25 18:56 Pulse Oximetry (%) 98 05/08/25 18:56 Oxygen Delivery Method Room Air 05/08/25 18:56 PROCEDURES: Laceration Laceration 1: Site: other (Left thumb and left index finger) Size (cm): 1.5 Description: linear Depth: involves tendon Local Anesthetic: lidocaine 1% Amount of anesthesia used (mL): 5 Pre-repair: wound explored and irrigated extensively Skin layer closed with: nylon Suture size (cm): 5-0 Number of sutures: 3 Technique: simple, interrupted Wound / Laceration MDM Narrative MDM Narrative:: 54-year-old female patient came in for evaluation regarding thumb laceration, patient sustained thumb laceration, dorsal aspect, at the metacarpophalangeal area area. Sustained few minutes prior to ER visit while cutting meat. Patient denies any other complaints. Reports history was done by me, see procedure notes. Patient cannot fully extend the thumb, I suspect there is a tendon injury to the extensor tendon to the thumb. Patient was advised to see PCP, and for referral to hand specialist for definitive repair of the tendon. Patient agrees with the plan. Patient still able to extend the thumb but not fully. Patient data External records reviewed:: None Clinical information provided by:: none Social determinants that could affect healthcare access:: none Patient has the following chronic illnesses:: Liver cirrhosis How is presenting disease/condition affected by chronic disease/condition?: uneffected by Evaluation data The following diagnostics were reviewed and interpreted by me:: other (specify) (None) Lab and/or radiology exams considered but not ordered:: None Interpretation Summary: None Medications / Prescriptions Medications or Prescriptions considered but not ordered:: None Medication administrations:: None Consultations Consultation(s) initiated? (list below): No Diagnosis Wound Differential Diagnosis: laceration, abrasion and avulsion of skin Most likely diagnosis given after review of the tests above:: Left thumb laceration with possible tendon injury, left index laceration Admission Indicated Admission indicated?: not indicated Admission Request Was there a request for admission?: No Disposition Plan Disposition Plan: Discharge Discharge Attestation Discharge Attestation: The patient and all family members were given an opportunity to ask questions and understood the discharge instructions. Discharge instructions specifically effects, indications for sooner follow up or return to the emergency department, and the expected course of current diagnosis. Patient condition: Stable Discharge Plan Plan Patient Disposition: HOME (Self Care) Discharge Disposition comment: Stable Prescriptions/Referrals Prescriptions/Med Rec: No Action lactulose [Constulose] 10 gram/15 mL solution 30 g PO QID Xifaxan 200 mg tablet 200 mg PO TID midodrine 10 mg tablet 10 mg PO TID Rx Instructions: do not give last dose of day after 6PM or within 4 hrs of bedtime hydroxyzine HCl 10 mg tablet 10 mg PO BID furosemide 40 mg tablet 40 mg PO QDAY Xifaxan 550 mg tablet 550 mg PO BID ursodiol 300 mg capsule 300 mg PO BID spironolactone 25 mg tablet 25 mg PO BID Referrals: Madie Hilario PA-C [Primary Care Provider] - In 1 week Problem List Clinical Impression: Laceration of finger, index, Laceration of right thumb with tendon involvement Patient/Caregiver Discharge Instructions Discharge Activity: activity as tolerated Education Materials: ED Laceration: All Closures Additional Instructions: Thank you for the opportunity for serving you today. You are stable for discharged . You are advised to: Follow-up with your PCP in 1 to 2 days and asked for referral to hand specialist for evaluation regarding possible tendon injury of the thumb Return to ED for worsening of symptoms Increase oral fluids For removal of sutures in 7 days Daily dressing with bacitracin as needed Print Language: [place] Stand Alone Forms: Cat Award Info., Patient Portal Info Letter AJ/ANEL Supervising Physician SINCERE Supervising Physician: MD Chas
[2025-05-08] MEDS: DIPHTH,PERTUSS(ACELL),TET VAC 0.5 ML SYR- ADULT IMi (20:01)
== END 2025-05-08 20:45 | disposition home or self-care (01) ==
PROVIDERS: Emergency Provider Emergency Medicine; PCP Physician Assistant
DX: S61.012A Laceration without foreign body of left thumb without damage to nail, initial encounter (principal); W26.0XXA Contact with knife, initial encounter; Y93.G1 Activity, food preparation and clean up; Z23 Encounter for immunization
CPT/HCPCS: 12001; 90715; 99282

== ENCOUNTER → 2025-05-12 | Outpatient (CLI) | payer BC, SELFPAY ==
[2025-05-12 14:30] LABS: INR 1.1 (0.9-1.3); Partial Thromboplastin Time 28.2 Seconds (22.0-36.0); Prothrombin Time 11.8 Seconds (9.0-12.2)
== END | disposition home or self-care (01) ==
PROVIDERS: PCP Family Medicine; Referring Provider Specialist; Visit Provider Specialist
DX: G93.40 Encephalopathy, unspecified (principal); K76.6 Portal hypertension
CPT/HCPCS: 36415; 85610; 85730

== ENCOUNTER → 2025-05-28 | Outpatient (CLI) | payer BC, SELFPAY ==
--- NOTE | 2025-05-28 14:05 | XR_ITS ---
Examination: Wrist, left 3 views Technique: Wrist AP, oblique, lateral 3 views Date and time of exam: May 28, 2025 1418 hours INDICATIONS: Laceration to the wrist May 09, 2025 wrist pain FINDINGS: Severe osteopenia. No fracture. No opaque foreign body IMPRESSION: No opaque foreign body
--- NOTE | 2025-05-28 14:05 | XR_ITS ---
Examination: Hand, left 3 views Technique: Hand AP, oblique, lateral 3 views Date and time of exam: May 28, 2025 1417 hours INDICATIONS: Laceration to the hand May 09, 2025 with pain FINDINGS: Severe osteopenia No fracture No opaque foreign body IMPRESSION: No opaque foreign body
== END | disposition home or self-care (01) ==
LOC: CDIM 13:52
PROVIDERS: PCP Physician Assistant; Referring Provider Nurse Practitioner Gerontology; Visit Provider Nurse Practitioner Gerontology
DX: S61.412A Laceration without foreign body of left hand, initial encounter (principal); S61.512A Laceration without foreign body of left wrist, initial encounter; X58.XXXA Exposure to other specified factors, initial encounter
CPT/HCPCS: 73110; 73130

== ENCOUNTER → 2025-06-09 | Outpatient (CLI) | payer BC, SELFPAY ==
[2025-06-09 14:47] LABS: Basophils # (Auto) 0.0 Thou/mm3 (0.0-0.2); Basophils % (Auto) 1 % (0-2.5); Eosinophils # (Auto) 0.1 Thou/mm3 (0.0-0.5); Eosinophils % (Auto) 2 % (0-10); Hematocrit 42.5 % (36.0-46.0); Hemoglobin 14.7 g/dL (12.0-16.0); Immature Granulocytes Auto 0.02 Thou/mm3 (0.00-0.00); Lymphocytes # (Auto) 2.1 Thou/mm3 (1.0-4.8); Lymphocytes % (Auto) 37 % (10-50); Mean Corpuscular HGB Conc 34.6 g/dl (31.0-37.0); Mean Corpuscular Hemoglobin 33.0 pg (25.0-35.0); Mean Corpuscular Volume 95 fL (80-100); Monocytes # (Auto) 0.6 Thou/mm3 (0.0-0.8); Monocytes % (Auto) 10 % (0-12); Neutrophils # (Auto) 2.9 Thou/mm3 (1.8-7.7); Neutrophils % (Auto) 50 % (37-80); Nucleated Red Blood Cell # 0.00 Thou/mm3 (0.00-0.00); Nucleated Red Blood Cell % 0 /100 WBC (0); Platelet Count 137 Thou/mm3 (140-440); RDW Standard Deviation 46.0 fL (36.4-46.3); Red Blood Count 4.46 Miln/mm3 (4.00-5.20); White Blood Count 5.7 Thou/mm3 (3.6-11.0)
[2025-06-09 15:00] LABS: Alanine Aminotransferase 35 U/L (10-49); Albumin, Serum 4.4 gm/dL (3.5-5.0); Albumin/Globulin Ratio 1.6 (1.2-2.2); Alkaline Phosphatase 135 U/L (46-116); Anion Gap 10 (7-16); Aspartate Amino Transferase 50 U/L (0-34); BUN/Creatinine Ratio 26 Ratio (12-20); Bilirubin,Total 1.5 mg/dL (0.3-1.2); Blood Urea Nitrogen 29 mg/dL (9-23); Calcium 10.2 mg/dL (8.3-10.6); Calcium (Corrected) 10.2 mg/dL (8.5-10.1); Carbon Dioxide 28.7 mMol/L (20.0-31.0); Chloride 102 mMol/L (98-107); Creatinine (Component) 1.1 mg/dL (0.6-1.3); Globulin 2.7 gm/dL (2.3-3.5); Glucose 134 mg/dL (74-106); Osmolality,Calculated 289 (275-295); Potassium 3.7 mMol/L (3.4-5.1); Sodium 141 mMol/L (136-145); Total Protein 7.1 gm/dL (5.7-8.2); eGFR 59 See Note
== END | disposition home or self-care (01) ==
PROVIDERS: PCP Family Medicine; Referring Provider Specialist; Visit Provider Specialist
DX: E78.9 Disorder of lipoprotein metabolism, unspecified (principal)
CPT/HCPCS: 36415; 80053; 85025

== ENCOUNTER → 2025-06-10 | Outpatient (CLI) | payer BC, SELFPAY ==
[2025-06-10 15:54] LABS: Collection Type, Urine Clean Catch
[2025-06-10 16:38] LABS: Bilirubin,Urine Negative (Negative); Blood,Urine Negative (Negative); Clarity,Urine Clear (Clear/Hazy); Color,Urine Yellow (Lt Yel-Yel); Glucose, Urine Negative (Negative); Ketones,Urine Negative (Negative); Leukocyte Esterase,Urine Positive (Negative); Nitrite,Urine Negative (Negative); PH,Urine 5.5 (5.0-7.0); Protein,Urine Negative (Neg - Trace); RBC,Urine 1 /hpf (0-3); Specific Gravity,Urine 1.018 (1.001-1.035); Squamous Epithelial Cell,Urine 1 /hpf (0-5); Urobilinogen,Urine Negative mg/dL (0.0-1.0); WBC,Urine 9 /hpf (0-5)
== END | disposition home or self-care (01) ==
LOC: SLDO 15:52
PROVIDERS: PCP Physician Assistant; Referring Provider Physician Assistant; Visit Provider Physician Assistant
DX: N39.0 Urinary tract infection, site not specified (principal)
CPT/HCPCS: 81001; 87086

== ENCOUNTER → 2025-06-11 | Outpatient (CLI) | payer BC, SELFPAY ==
[2025-06-20 06:37] LABS: DHEA Sulfate* 41 mcg/dL (8-188); Estradiol, Ultrasensitive* 4 pg/mL; Progesterone,LC/MS* <0.1 ng/mL; Testosterone, Free,Dialysis 2.6 pg/mL (0.1-6.4); Testosterone, Total, Dialysis 25 ng/dL (2-45)
== END | disposition home or self-care (01) ==
LOC: COPL 07:19
PROVIDERS: PCP Family Medicine; Referring Provider Registered Nurse General Practice; Visit Provider Registered Nurse General Practice
DX: N95.1 Menopausal and female climacteric states (principal)
CPT/HCPCS: 36415; 82627; 82670; 84144; 84402; 84403

== ENCOUNTER → 2025-06-30 | Outpatient (CLI) | payer BC, SELFPAY ==
[2025-06-30 10:51] LABS: Collection Type, Urine Clean Catch
[2025-06-30 11:39] LABS: Basophils # (Auto) 0.0 Thou/mm3 (0.0-0.2); Basophils % (Auto) 1 % (0-2.5); Eosinophils # (Auto) 0.1 Thou/mm3 (0.0-0.5); Eosinophils % (Auto) 1 % (0-10); Hematocrit 46.0 % (36.0-46.0); Hemoglobin 15.9 g/dL (12.0-16.0); Immature Granulocytes Auto 0.01 Thou/mm3 (0.00-0.00); Lymphocytes # (Auto) 2.5 Thou/mm3 (1.0-4.8); Lymphocytes % (Auto) 39 % (10-50); Mean Corpuscular HGB Conc 34.6 g/dl (31.0-37.0); Mean Corpuscular Hemoglobin 32.9 pg (25.0-35.0); Mean Corpuscular Volume 95 fL (80-100); Monocytes # (Auto) 0.4 Thou/mm3 (0.0-0.8); Monocytes % (Auto) 7 % (0-12); Neutrophils # (Auto) 3.3 Thou/mm3 (1.8-7.7); Neutrophils % (Auto) 52 % (37-80); Nucleated Red Blood Cell # 0.00 Thou/mm3 (0.00-0.00); Nucleated Red Blood Cell % 0 /100 WBC (0); Platelet Count 126 Thou/mm3 (140-440); RDW Standard Deviation 41.8 fL (36.4-46.3); Red Blood Count 4.83 Miln/mm3 (4.00-5.20); White Blood Count 6.4 Thou/mm3 (3.6-11.0)
[2025-06-30 11:48] LABS: Alanine Aminotransferase 31 U/L (10-49); Albumin, Serum 4.2 gm/dL (3.5-5.0); Albumin/Globulin Ratio 1.5 (1.2-2.2); Alkaline Phosphatase 140 U/L (46-116); Anion Gap 7 (7-16); Aspartate Amino Transferase 37 U/L (0-34); BUN/Creatinine Ratio 23 Ratio (12-20); Bilirubin,Total 1.1 mg/dL (0.3-1.2); Blood Urea Nitrogen 21 mg/dL (9-23); Calcium 9.7 mg/dL (8.3-10.6); Calcium (Corrected) 9.7 mg/dL (8.5-10.1); Carbon Dioxide 27.9 mMol/L (20.0-31.0); Cardiac Risk Estimate 2.5 RATIO (3.7-5.6); Chloride 101 mMol/L (98-107); Cholesterol 125 mg/dL (132-200); Creatinine (Component) 0.9 mg/dL (0.6-1.3); Globulin 2.8 gm/dL (2.3-3.5); Glucose 108 mg/dL (74-106); HDL Cholesterol 51 mg/dL (40-60); LDL Cholesterol,Calculated 53 mg/dL (0-130); Osmolality,Calculated 275 (275-295); Potassium 3.5 mMol/L (3.4-5.1); Sodium 136 mMol/L (136-145); Total Protein 7.0 gm/dL (5.7-8.2); Triglycerides 106 mg/dL (30-150); eGFR > 60 See Note
[2025-06-30 11:52] LABS: Bilirubin,Urine Negative (Negative); Blood,Urine Negative (Negative); Clarity,Urine Clear (Clear/Hazy); Color,Urine Lt-Yellow (Lt Yel-Yel); Culture Indicated,Urine Not Indicated; Glucose, Urine Negative (Negative); Ketones,Urine Negative (Negative); Leukocyte Esterase,Urine Negative (Negative); Nitrite,Urine Negative (Negative); PH,Urine 6.0 (5.0-7.0); Protein,Urine Negative (Neg - Trace); RBC,Urine 1 /hpf (0-3); Specific Gravity,Urine 1.018 (1.001-1.035); Squamous Epithelial Cell,Urine 1 /hpf (0-5); Urobilinogen,Urine Negative mg/dL (0.0-1.0); WBC,Urine 3 /hpf (0-5)
[2025-06-30 12:05] LABS: Glucose Estimated Average 111 mg/dL (80-131); Hemoglobin A1C 5.5 % Hgb (4.8-6.0)
== END | disposition home or self-care (01) ==
LOC: COPL 10:01
PROVIDERS: PCP Family Medicine; Referring Provider Specialist; Visit Provider Physician Assistant
DX: R73.01 Impaired fasting glucose (principal); E78.5 Hyperlipidemia, unspecified; R31.9 Hematuria, unspecified; N18.30 Chronic kidney disease, stage 3 unspecified; R11.0 Nausea; R10.32 Left lower quadrant pain; R14.0 Abdominal distension (gaseous); R60.9 Edema, unspecified
CPT/HCPCS: 36415; 80053; 80061; 81001; 83036; 85025

== ENCOUNTER → 2025-08-04 | Outpatient (CLI) | payer BC, SELFPAY ==
[2025-08-04 08:42] LABS: Basophils # (Auto) 0.0 Thou/mm3 (0.0-0.2); Basophils % (Auto) 1 % (0-2.5); Eosinophils # (Auto) 0.1 Thou/mm3 (0.0-0.5); Eosinophils % (Auto) 2 % (0-10); Hematocrit 45.7 % (36.0-46.0); Hemoglobin 15.8 g/dL (12.0-16.0); Immature Granulocytes Auto 0.01 Thou/mm3 (0.00-0.00); Lymphocytes # (Auto) 2.3 Thou/mm3 (1.0-4.8); Lymphocytes % (Auto) 41 % (10-50); Mean Corpuscular HGB Conc 34.6 g/dl (31.0-37.0); Mean Corpuscular Hemoglobin 32.4 pg (25.0-35.0); Mean Corpuscular Volume 94 fL (80-100); Monocytes # (Auto) 0.5 Thou/mm3 (0.0-0.8); Monocytes % (Auto) 9 % (0-12); Neutrophils # (Auto) 2.6 Thou/mm3 (1.8-7.7); Neutrophils % (Auto) 47 % (37-80); Nucleated Red Blood Cell # 0.00 Thou/mm3 (0.00-0.00); Nucleated Red Blood Cell % 0 /100 WBC (0); Platelet Count 148 Thou/mm3 (140-440); RDW Standard Deviation 42.2 fL (36.4-46.3); Red Blood Count 4.88 Miln/mm3 (4.00-5.20); White Blood Count 5.5 Thou/mm3 (3.6-11.0)
[2025-08-04 09:21] LABS: Alanine Aminotransferase 30 U/L (10-49); Albumin, Serum 4.4 gm/dL (3.5-5.0); Albumin/Globulin Ratio 1.8 (1.2-2.2); Alkaline Phosphatase 148 U/L (46-116); Anion Gap 7 (7-16); Aspartate Amino Transferase 26 U/L (0-34); BUN/Creatinine Ratio 30 Ratio (12-20); Bilirubin,Total 1.0 mg/dL (0.3-1.2); Blood Urea Nitrogen 27 mg/dL (9-23); Calcium 9.7 mg/dL (8.3-10.6); Calcium (Corrected) 9.7 mg/dL (8.5-10.1); Carbon Dioxide 31.0 mMol/L (20.0-31.0); Chloride 104 mMol/L (98-107); Creatinine (Component) 0.9 mg/dL (0.6-1.3); Globulin 2.5 gm/dL (2.3-3.5); Glucose 120 mg/dL (74-106); Osmolality,Calculated 289 (275-295); Potassium 3.8 mMol/L (3.4-5.1); Sodium 142 mMol/L (136-145); Total Protein 6.9 gm/dL (5.7-8.2); eGFR > 60 See Note
== END | disposition home or self-care (01) ==
LOC: COPL 07:54
PROVIDERS: PCP Family Medicine; Referring Provider Specialist; Visit Provider Specialist
DX: R11.0 Nausea (principal); R10.32 Left lower quadrant pain; R14.0 Abdominal distension (gaseous); R60.9 Edema, unspecified
CPT/HCPCS: 36415; 80053; 85025

== ENCOUNTER → 2025-08-26 | Outpatient (CLI) | payer BC, SELFPAY ==
--- NOTE | 2025-08-26 14:00 | XR_ITS ---
Examination: Breast ultrasound complete, bilateral Date and time of exam: August 26, 2025, 1413 hours INDICATIONS: Dense breast architecture on mammography, family history strong family history breast cancer, sister Technique: Real-time grayscale ultrasonographic imaging bilateral breasts, including all 4 quadrants as well as nipple retroareolar and axillary regions. Findings: Sonographic images right breast 1:00 nodule lobular margins 6 x 5 mm Sonographic images left breast No cystic or solid mass IMPRESSION: BI-RADS Category 3: Probably benign findings Recommend 1 additional 6-month right breast sonogram follow-up to document stability of 1:00 nodule
== END | disposition home or self-care (01) ==
LOC: CDIM 13:39
PROVIDERS: PCP Family Medicine; Referring Provider Physician Assistant; Visit Provider Physician Assistant
DX: R92.333 Mammographic heterogeneous density, bilateral breasts (principal); N63.12 Unspecified lump in the right breast, upper inner quadrant
CPT/HCPCS: 76641

== ENCOUNTER → 2025-09-08 | Outpatient (CLI) | payer BC, SELFPAY ==
[2025-09-08 13:20] LABS: INR 1.0 (0.9-1.3); Partial Thromboplastin Time 29.6 Seconds (22.0-36.0); Prothrombin Time 10.6 Seconds (9.0-12.2)
[2025-09-08 13:23] LABS: Alanine Aminotransferase 27 U/L (10-49); Albumin, Serum 4.6 gm/dL (3.5-5.0); Alkaline Phosphatase 192 U/L (46-116); Aspartate Amino Transferase 19 U/L (0-34); Bilirubin,Direct 0.3 mg/dL (0.0-0.3); Bilirubin,Total 0.6 mg/dL (0.3-1.2); Total Protein 7.5 gm/dL (5.7-8.2)
== END | disposition home or self-care (01) ==
PROVIDERS: PCP Physician Assistant; Referring Provider Family Medicine; Visit Provider Specialist
DX: R74.01 Elevation of levels of liver transaminase levels (principal); R18.0 Malignant ascites; K76.82 Hepatic encephalopathy
CPT/HCPCS: 36415; 80076; 85610; 85730